=== PATIENT | female | born 1940 | race Caucasian/White ===

== ENCOUNTER 2020-08-28 14:53 | Observation (INO) | payer MEDICARE ==
[~2020-08-28] VITALS: Ht 162.6 cm; Wt 64.5 kg
[2020-08-28] MEDS ORDERED: FLUO10 PO (15:04)
[2020-08-28] MEDS ORDERED: SIMV10 PO (15:04)
[2020-08-28] MEDS ORDERED: METO50ER PO (15:04)
[2020-08-28 15:07] LABS: BASOPHILS ABSOLUTE AUTO 0.03 K/mm3 (0.00-0.23); BASOPHILS PERCENT AUTO 0 % (0-2); EOSINOPHILS PERCENT AUTO 0 % (0-6); Hematocrit 42.9 % (33.0-51.0); Hemoglobin 14.1 g/dL (11.5-16.0); IMMATURE GRAN ABSOLUTE AUTO 0.09 K/mm3 (0.00-0.10); IMMATURE GRAN PERCENT AUTO 0 % (0-1); LYMPHOCYTES ABSOLUTE AUTO 0.82 K/mm3 (0.84-5.20); LYMPHOCYTES PERCENT AUTO 4 % (21-46); MONOCYTES ABSOLUTE AUTO 0.63 K/mm3 (0.16-1.47); MONOCYTES PERCENT AUTO 3 % (4-13); Mean Corpuscular HGB 32.5 pg (26.0-34.0); Mean Corpuscular HGB Conc 32.9 g/dL (31.5-36.5); Mean Corpuscular Volume 99 fL (80-100); Mean Platelet Volume 10.8 fL (9.1-12.4); NEUTROPHILS ABSOLUTE AUTO 18.98 K/mm3 (1.96-9.15); NEUTROPHILS PERCENT AUTO 92 % (41-73); Platelet Count 298 K/mm3 (150-400); RDW Coefficient Variation 14.6 % (11.7-14.2); RDW Standard Deviation 52.9 fL (35.1-46.3); Red Blood Cell Count 4.34 M/mm3 (3.80-5.20); White Blood Cell Count 20.55 K/mm3 (4.00-11.30)
[2020-08-28 15:39] LABS: Alanine Aminotransfer (ALT/SGP 77 U/L (12-78); Albumin, Blood 3.7 g/dL (3.4-5.0); Albumin/Globulin Ratio 0.9 (0.8-1.8); Alk Phos 74 U/L (50-136); Anion Gap 8 mmol/L (6-16); Aspartate Aminotrans (AST/SGOT 67 U/L (12-37); Bilirubin, Total 1.2 mg/dL (0.1-1.0); Blood Urea Nitrogen 25 mg/dL (8-24); Bun/Creatinine Ratio 29.4 (12.0-20.0); CO2, Blood 24 mmol/L (21-32); Calcium, Blood 9.1 mg/dL (8.5-10.1); Chloride, Blood 101 mmol/L (98-108); Creatinine, Blood 0.85 mg/dL (0.40-1.00); Globulin, Blood 4.2 g/dL (2.2-4.0); Glomerular Filtration Rate >60 (60-); Glucose, Blood 175 mg/dL (70-99); Potassium, Blood 5.1 mmol/L (3.5-5.5); Sodium, Blood 133 mmol/L (136-145); Total Protein, Blood 7.9 g/dL (6.4-8.2)
[2020-08-28 15:40] LABS: Troponin I 0.263 ng/mL (0.000-0.040)
[2020-08-28 15:41] LABS: International Normalized Ratio 0.99; Prothrombin Time Results 10.6 Sec (9.7-11.5)
[2020-08-28 15:50] LABS: Source, Urine Catheter
[2020-08-28 15:53] LABS: Appearance, Urine Hazy (Clear); Bilirubin, Urine Neg (Neg); Blood, Urine 2+ (Neg); Color, Urine Yellow (P-Yellow); Glucose Qualitative, Urine Neg (Neg); Ketones, Urine 3+ (Neg); Leukocyte Esterase, Urine 3+ (Neg); Nitrite, Urine Pos (Neg); Protein, Urine 2+ (Neg); Specific Gravity, Urine 1.015 (1.003-1.022); Urobilinogen, Urine 1+ (Normal)
[2020-08-28 15:58] LABS: White Blood Cells, Urine TNTC /hpf (0-5)
[2020-08-28 15:59] LABS: Bacteria Many /hpf; Squamous Epithelial Cells Few /hpf (Few)
[2020-08-28] MEDS ORDERED: XARELTO20 MG (16:31)
[2020-08-28 17:11] LABS: Influenza A, PCR NEGATIVE (NEGATIVE); Influenza B, PCR NEGATIVE (NEGATIVE); Resp Syncytial Virus, PCR NEGATIVE (NEGATIVE); SARS-Cov-2 (COVID-19) PCR, MMC NEGATIVE (NEGATIVE)
--- NOTE | 2020-08-29 04:38 | NUR ---
SHIFT SUMMARY NEW ADMIT FROM ED THIS SHIFT (2039), PT HAS BEEN NON VERBAL BUT DOES TRACK WITH EYES AND WILL SQUEEZE W/R HAND TO RESPOND TO QUESTIONS. MEDICATED 1X FOR PAIN, NO ACUTE CHANGES, SLEPT T/O THE NIGHT & SLEEPING A THIS TIME, CALL LIGHT IN REACH, WILL CONT TO MONITOR UNTIL REPORT GIVEN TO DAY RN.
--- NOTE | 2020-08-29 09:47 | NUR ---
sleeping, minimal response to voice, reacts to touch but does not open eyes or speak, female aid turned pt on side while asprin was applied, call light on chest, frequent checks, rm air, abx infusing with no s/sx of infection/infiltration
--- NOTE | 2020-08-29 18:09 | NUR ---
remained at baseline whole shift, medicated as prescribed, frequent physical assessments, no acute changes noted, no persons cleared to receive information so unable to inform callers who were not listed on face sheet, encouraged them to contact presons who could add them to contact list, assessed pt in am
--- NOTE | 2020-08-30 03:55 | NUR ---
SHIFT SUMMARY PATIENT ON COMFORT CARE. NOT ALERT AT THIS TIME; WITH EYES OPEN BUT NOT ABLE TO TRACK. NON-VERBAL AND BEDREST. ON ROOM AIR. TORRE PATENT AND DRAINING TO GRAVITY. PIV REMAINS INTACT. NO S/SX OF PAIN, SOB, AND N/V. CALL LIGHT IN REACH. BED IN LOWEST POSITION AND ALARM ACTIVATED. WILL CONTINUE TO MONITOR UNTIL DAY SHIFT NURSE ASSUMES CARE.
--- NOTE | 2020-08-30 10:01 | NUR ---
dr pleased with improvement, able to signal for y/n questions, eyes tracking, both open at times, medicated and cared for as prescribed, call light in reach, dr recommends ot assessment to see if another call light might be more effective, abx infusing, rm air, will continue to monitor and treat
--- NOTE | 2020-08-30 13:40 | NUR ---
ADMIT: 08/28/20 DISCHARGE: DX: Acute CVA CC: kwilcox EMMANUELLE CALL: RESIDENCE: Home CAREGIVER: Priscila Li, Friend, Driss Li, Friend, DX: exostosis, DM, Afib, HTN, GERD, DME: none CCM: none HOME HEALTH: none SUMMARY: ADMIT: 08/28/20 08/30/20- per chart review with Dr. Baird, pt appears to be more responsive today. She was able to communicate a little through squeezing the 's hand. Pt acknowledged that she would not want to live where she could not communicate. is needing the patient's advanced directive. She will try to reach Priscila to get the document. At this time, pt is on comfort care, NPO. Once has document she will proceed forward with the patient's wishes. -kjw 1: Acute CVA (cerebrovascular accident) A/P: Per POA and andvanced directive she read me, patient would not want to be kept alive if she is unable to communicate. With size and location of occlusion, it is unlikely patient will make significant enough improvement to fulfill her wishes for quality of life. They agreed to conservative treatment with Aspirin and Antibiotics for possible UTI and pneumonia. - Palliative care consult - Hospice referal - Comfort measures with limited additional treatment - ASA FL daily - Nothing by mouth 2: NSTEMI (non-ST elevated myocardial infarction) A/P: - Treatment as above 3: UTI (urinary tract infection) A/P: - Ceftriaxone 4: Atrial fibrillation, chronic A/P: - Hold home Xarelto due to risk of conversion to hemorrhagic stroke - Patient unable to take by mouth medications right now 5: PVD (peripheral vascular disease) A/P: Pulse barely audible on doppler LLE, more evidence of severe vasculopathic disease 6: Mechanical venous thromboembolism (VTE) prophylaxis in place
--- NOTE | 2020-08-30 18:36 | NUR ---
at baseline, responds to voice and touch, more responsive today than yesterday, call light in reach and has used just not appropriately, rm air, saline locked, bed in low position, no acute changes noted during shift, frequent checks and repositioning, will share bsr with noc nurse and pt
--- NOTE | 2020-08-31 03:59 | NUR ---
SHIFT SUMMARY PATIENT HAD NO ACUTE CHANGES OBSERVED. RESPONDS TO VOICE AND TOUCH IN HER FIELD OF VIEW. EYES OPEN AND NON-VERBAL. TORRE PATENT AND DRAINING TO GRAVITY. NEW STAT LOCK PLACE. NO S/SX OF PAIN, SOB, AND N/V. NO FAMILY PRESENT OR FAMILY CALLS. BED IN LOWEST POSITION AND ALARM ACTIVATED. WILL CONTINUE TO MONITOR UNTIL DAY SHIFT NURSE ASSUMES CARE.
--- NOTE | 2020-08-31 11:06 | NUR ---
0800 NOTE SHE IS PALE. RESPIRATIONS REGULAR AND UNLABORED. L EYE ONLY OPEN SLIGHTLY. THE R EYE IS MORE FULLY OPEN. SHE DID NOT RESPOND VERBALLY WHEN I TALKED WITH HER. SHE APPEARS COMFORTABLE. WHEN ATTENDS CHECKED, THEY ARE A LITTLE WET. IT APPEARED THAT HER TORRE WAS PROBABLY LEAKING. I ADDED MORE STERILE SALINE TO THE BALLOON. JOSE JUAN-CARE DONE WITH ATTEND CHANGE.
--- NOTE | 2020-08-31 11:10 | NUR ---
WILL GIVE ROXANOL AND ATROPINE DROPS. SHE SHOOK HER HEAD YES TO MY ASKING ABOUT PAIN. SHE HAS VERY SLIGHT GURGLING SOUNDS. TO START ATROPINE. I CHANGED FROM 1 MUSIC STATION TO ANOTHER ON HER TV.
--- NOTE | 2020-08-31 13:35 | NUR ---
1200 NOTE RESTING COMFORTABLY BUT TURNED AGAIN. SOFT MUSIC PLAYING. NO VISITORS.
--- NOTE | 2020-08-31 14:34 | NUR ---
1400 NOTE RESTING COMFORTABLY ON HER R SIDE. NO RESP DISTRESS.
--- NOTE | 2020-08-31 15:08 | NUR ---
PAL CARE COMFORT CARE VISIT - Case conferenced with RN after and during visit and Dr and [employer] healthcare applications analyst after my visit. Pt was resting quietly with eyes open. She had recently been medicated for pain. I did not note nonverbal painful behaviors even with two person repositioning during my visit with her RN. Pt has jauregui cath with lt yellow urine in jauregui drainage bag. Orders reviewed and discussed with RN and DR. Some prn medications changed per VO to be more in line with what would be done outside of hospital on hospice. Dr awaiting documentation from family and son to [facility] today per reports. Pt has indicated that she desires comfort care at this time per Dr. If able I will try to confirm that. Pt is unable to verbally communicate but was able to squeeze hand for affirmative response previously. Pt is unable to swallow after this CVA and is total assist of two persons for bed mobility. Pal Care to continue visits for support and s/s management.
--- NOTE | 2020-08-31 18:23 | NUR ---
1600 NOTE TURNED. PERICARE DONE. ATTEND A LITTLE WET AGAIN FROM LEAKING TORRE CATHETER. CATHETER DC'D. 475 MLS YORDAN URINE EMPTIED FROM COLLECTION BAG. SHE DID NOT HAVE ANY DISTRESS WITH ALL THIS. SHE APPEARS COMFORTABLE. CAME AND SPOKE WITH HER SON WHO ARRIVED FROM [facility]. HE BROUGHT IN A COPY OF HER ADVANCE DIRECTIVE. IT IS ON THE CHART.
--- NOTE | 2020-08-31 18:26 | NUR ---
SHE IS COMFORTABLE. SON AND HER INGOT HEADER VISITED HER TODAY. ADVANCE DIRECTIVE ON CHART. DOCTOR CONFERENCED WITH HER SON. IV ANTIBIOTIC DC'D. CC ORDERS UPDATED BY THE PALLLIATIVE CARE NURSE TODAY. TORRE DC'D BECAUSE IT LEAKED.
--- NOTE | 2020-08-31 22:42 | NUR ---
08/31/20 DR MONTERROSO AND MYSELF MET WITH SON, CAMILLE IN PATIENTS ROOM. HE BROUGHT COPIES OF POA. FRIENDS CALOS AND IESHA ARE POA. ALL ARE IN AGREEMENT THAT SHE WOULD NOT WANT TO LIVE IN THIS CURRENT STATE. COMFORT CARE IN PLACE, REMOVED FLUIDS TODAY. CAMILLE LIVES OUT OF STATE AND WILL BE RETURNING BACK HOME IN A COUPLE OF DAYS, CAMILLE DOES NOT BELIEVE THAT ARETHA HAS ANY ASSETS OR MONEY TO PAY FOR ADDITIONAL CARE. HE ALSO STATES THAT HER FRIENDS CALOS AND IESHA ARE NOT ABLE TO CARE FOR ARETHA IN HER CURRENT STATE AT HOME ON HOSPICE SERVICES. PER DR MONTERROSO, ARETHA WILL REMAIN IN THE HOSPITAL UNLESS ALTERNATIVE ARANGEMENTS CAN BE MADE. I WILL REACH OUT TO CALOS AND IESHA ON MONDAY TO DISCUSS ANY ALTERNATIVE OPTIONS FOR HER CARE. CP
--- NOTE | 2020-09-01 04:31 | NUR ---
SHIFT SUMMARY ADMITTED FOR ACUTE CVA. DNR CODE/COMFORT CARE. WE HAVE BEEN Q 2 TURNING THIS PT AND FLOATING HER HEELS. SHE APPEARS COMFORTABLE AND IN NO DISTRESS. I DID GIVE ATROPINE 1 TIME FOR EXCESSIVE SECRETIONS. SHE IS INCONTINENT. UNMEASURED VOIDS. ATTENDS ARE IN PLACE. ORAL CARE PERFORMED. WE USED MOUTH MOISTENING SWABS AND CHAPSTICK.
--- NOTE | 2020-09-01 11:30 | NUR ---
[facility] CARE [facility] CARE VISIT - PT lying on right side, eyes open. She is unable to talk. When asked if she was hurting she appeared to nod yes. I asked her to squeeze my hand if she was hurting and she did. When I told her I would go get nurse to administer medication for pain and she squeezed again. Once pt was medicated with Roxanol, Nurse and I repositioned to left side. Pt wanted to hold my hand. I gave her a hand massage and foot massage, which she responded well to. No visitors at bedside. Will request naturopathic doctor visits also for company of pt who is alone in her room most of the time, outside of staff care and intervention. [facility] Care to cont daily visits for s/s management and support.
--- NOTE | 2020-09-01 17:31 | NUR ---
Spiritual care note: Ollie was awake and held my hand throughout visit. She denied pain/anxiety and appeared to understand what I was saying. I massaged her hands and arms and she appeared to enjoy this. I provided affirmation of safety and love and offered prayer. She seems to understand she is nearing end of life and shakes her head 'no' when asked if she was afraid. She nodded 'yes' that she felt ready. She is very sweet. I will continue to spend time with Ollie as schedule permits.
--- NOTE | 2020-09-01 17:50 | NUR ---
SHIFT SUMMARY PATIENT MEDICATED X2 FOR PAIN THIS SHIFT. REPOSITION Q2. LEFT SIDE WEAK. PATIENT ABLE TO COMMUNICATE WITH YES/NO HEAD SHAKES AND POINT TO YES/NO WHEN WRITTEN DOWN. PATIENT'S SON VISTED THIS MORNING. SPIRITUAL VIAITED IN AFTERNOON.
--- NOTE | 2020-09-01 19:34 | NUR ---
AWAKENS AT ROUNDING. DENIES PAIN. WARM BLANKET APPLIED. CALL LIGHT IN REACH
--- NOTE | 2020-09-01 21:14 | NUR ---
RESTING QUETLY. CALL LIGHT IN REACH
--- NOTE | 2020-09-01 21:49 | NUR ---
REPOSITIONED, PAIN MED GIVEN. WATCHING TV. CALL LIGHT IN REACH
--- NOTE | 2020-09-02 00:44 | NUR ---
AWAKE, WATCHING TV, REACHES OUT TO STAFF TO HOLD THEIR HAND. RESPS EVEN. NONOTED ACUTE DISTRESS. CALL LIGHT IN REACH
--- NOTE | 2020-09-02 03:01 | NUR ---
SHIFT SUMMARY REMAINS ON COMFORT CARE. REPOSITIONED AND MEDICATED FOR COMFORT - SEE MAR FOR DETAILS. CURRENTLY RESTING QUIETLY. CALL LIGHT IN REACH
--- NOTE | 2020-09-02 06:23 | NUR ---
RESTING QUIETLY. CALL LIGHT IN REACH
--- NOTE | 2020-09-02 06:24 | NUR ---
RESTING QUIETLY, CALL LIGHT IN REACH
--- NOTE | 2020-09-02 06:24 | NUR ---
RESTING QUIETLY. CALL LIGHT IN REACH
--- NOTE | 2020-09-02 10:27 | NUR ---
Pt resting in bed upon arrival. Pt able to nod her head and squeeze hand to respond to questions. Pt denies pain at this time. Pt does report mild discomfort and is requesting to be repositioned. Assisted Bedside RN in repositioning. Spoke with Bedside RNs Syeda and Roma. Discussed case and concerns. Pt does appear to be more alert and plan is for ST to evaluate. Palliative Care will remain available.
--- NOTE | 2020-09-02 12:20 | NUR ---
PT WROTE "YES" WHEN ASKING ABOUT PAIN. INDICATED PAIN LOCATED IN NECK BY POINTING AT IT. UNABLE TO GIVE PAIN SCORE. REPOSITIONED ON TO LEFT SIDE
--- NOTE | 2020-09-02 13:45 | NUR ---
09/02/20 s/w Driss Li by telephone,[phone] POA and lesly, discussed jose current state, aware, not eating or drinking, not going to the bathroom, bed bound. Enjoys comfort. Suggested that they consider taking her home for hospice. He said he will talk to his about it and let me know tomorrow. cp
--- NOTE | 2020-09-02 16:29 | NUR ---
DID ORAL CARE FOR PT. PT DENIES PAIN/N. FOUND NEW TV CHANNEL FOR PT TO WATCH.
--- NOTE | 2020-09-02 17:03 | NUR ---
Spiritual care note: Ollie was alone in room, non-verbal, and appears calm/comfortable. She held my hand while I spoke to her and appeared to enjoy companionship. I will remain available.
--- NOTE | 2020-09-02 18:10 | NUR ---
SHIFT SUMMARY PT IS A&O BUT ITS IS DIFFICULT FOR HER TO MAKE HER NEEDS KNOWN VERABALLY. SHE IS ABLE TO RESPOND WITH YES OR NO USING A COMMUNICATION BOARD. PT WORKED WITH SPEECH THERAPY TODAY AND IS STILL NPO BUT SHOULD BE SUCTIONED Q4 WITH ORAL CARE. IN AFTERNOON PT HAD PAIN IN NECK, PT REPOSITION AND GIVEN PAIN MEDS. PT SON CAME TO VISIT IN THE [facility] AND STATED HE WOULD BE DRIVING HOME TO [facility] BUT WILL BE BACK IN A FEW DAYS.
--- NOTE | 2020-09-02 19:00 | NUR ---
COMFORT CARE RECIEVED BEDSIDE REPORT. PT APPEARS TO BE RESTING WITHOUT ANY NEEDS AT THIS TIME. BED IN LOWEST POSITION; ALARM ON. CALL LIGHT WITHIN REACH.
--- NOTE | 2020-09-02 21:00 | NUR ---
COMFORT CARE APPEARS TO BE RESTING WITHOUT ANY NEEDS AT THIS TIME. BED REMAINS IN LOWEST POSITION; ALARM ON. CALL LIGHT WITHIN REACH.
--- NOTE | 2020-09-03 01:00 | NUR ---
COMFORT CARE APPEARS TO BE RESTING WITHOUT ANY NEEDS AT THIS TIME. ORAL CARE COMPLETED. REPOSITIONED. BED IN LOWEST POSITION; ALARM ON. CALL LIGHT WITHIN REACH.
--- NOTE | 2020-09-03 03:00 | NUR ---
COMFORT CARE APPEARS TO BE RESTING WITHOUT ANY NEEDS AT THIS TIME. CONTINUE WITH CURRENT PLAN OF CARE. BED IN LOWEST POSITION; ALARM ON. CALL LIGHT WITHIN REACH.
--- NOTE | 2020-09-03 04:22 | NUR ---
SHIFT SUMMARY ALERT, ABLE TO MAKE NEEDS KNOWN UTILIZING PICTURE BOARD. REPOSITIONED T/O SHIFT. ORAL CARE COMPLETED. NO C/O PAIN/DISCOMFORT. APPEARED TO REST MUCH OF THE NIGHT. NO ACUTE CHANGES NOTED. BED REMAINS IN LOWEST POSITION; ALARM ON. CALL LIGHT WITHIN REACH. CONTINUE WITH CURRENT PLAN OF CARE. REPORT TO ONCOMING RN.
--- NOTE | 2020-09-03 06:41 | NUR ---
COMFORT CARE APPEARS TO BE RESTING WITHOUT ANY NEEDS AT THIS TIME. ORAL CARE. REPOSITIONED WITH PILLOWS UNDER EACH HIP. BED REMAINS IN LOWEST POSITION; ALARM ON. CALL LIGHT IN REACH
--- NOTE | 2020-09-03 11:32 | NUR ---
Pt resting in bed. Pt able to respond to questions by noding her head. Pt denies pain and discomfort at this time. Offered gentle voice and therapeutic touch. Spoke with Bedside RN Christopher and discussed case. Palliative Care will remain available.
--- NOTE | 2020-09-03 16:14 | NUR ---
PT ASLEEP AT THIS TIME
--- NOTE | 2020-09-03 17:20 | NUR ---
PT AWAKE. DENIES PAIN AND NAUSEA AT THIS TIME.
--- NOTE | 2020-09-03 17:21 | NUR ---
Spiritual care note: Ollie appears less lucid today and quite weak. She drifted in and out of sleep while I visited. I rubbed her hands and feet and spoke words of assurance to her. [facility] Care Worker services will remain available.
--- NOTE | 2020-09-03 18:03 | NUR ---
09/03/20 Requested help from Chelle Dodson field case manager to identify if hospice services would be available through [place], [facility] program. I was told on Monday by Jennifer in care management that [facility]. cp
--- NOTE | 2020-09-03 18:27 | NUR ---
SHIFT SUMMARY PT HAS DENIED PAIN DURING SHIFT. PT SELPT FOR SECOND PART OF SHIFT. ABLE TO AROUSE PT WHEN NEEDING TO TURN OR PROVIED PATIENT CARE. PT ABLE TO NOD YES OR NO TO ANSWER QUESTIONS. PT CURENTLY IN ROOM ASLEEP. CALL LIGHT IS ON PT UNAFFECTED SIDE.
--- NOTE | 2020-09-03 23:27 | NUR ---
09/03/20 2200 PT SLEEPING WITHOUT DISTRESS. NO INTERVENTION NEEDED AT THIS TIME.
--- NOTE | 2020-09-04 06:38 | NUR ---
09/04/20 0600 REPOSITIONED AND FELL BACK ASLEEP. APPEARS COMFORTABLE.
--- NOTE | 2020-09-04 07:15 | NUR ---
PT AWAKE, OFFERED ORAL CARE PT DECLINED. PT DENIES P/N/V AT THIS TIME.
--- NOTE | 2020-09-04 09:56 | NUR ---
Comfort Care Visit Pt resting in bed and denies pain at this time. Pt appears a little more withdrawn today. Offered gentle voice and therapeutic touch. Spoke with bedside RN Syeda and discussed case. Palliative Care will remain available.
--- NOTE | 2020-09-04 10:33 | NUR ---
SPOKE WITH SON ON THE PHONE REQUESTING UPDATE. SON WANTED TO KNOW HOW LONG SHE MAY HAVE. INFORMED HIM IT'S HARD TO KNOWN AND THAT IS A CASE BY CASE. SON SAID HE PLANS TO [place] BACK [place] TOM[place] NIGHT AND THANKED US FOR CARING FOR HIS MOM.
--- NOTE | 2020-09-04 11:06 | NUR ---
CAMILLE FROM PASTORAL CARE IN ROOM PLAYING [employer].
--- NOTE | 2020-09-04 12:07 | NUR ---
Spiritual care visit conducted. Patient is lying in bed and alert. I bring my guitar in and ask patient if it is ok for me to play for her. She nods her head yes. I play several soft therapeutic kinds of songs and in between I remind patient of her value and worth and the hope for her future. At one point patient began to weep while I was playing guitar. I then sat and held patient's hand and patient tried so hard to tell me what she was feeling but to no avail. We tried her board with symbols and letters but patient gave up. I then played a couple more songs and then asked patient if I could say a prayer for her. She nodded affirmingly. I provided prayer which caused more tears to fall. We tried to get to the pain and when I said that she has clear thoughts but can't express them she nodded affirming again. I normalize patient's frustration and and provide a calming presence. I will continue to remain available to patient and family.
--- NOTE | 2020-09-04 17:39 | NUR ---
09/04/20 No update on availability of hospice services available at [place], [facility]. Will follow up with Ivory MENA Monday. Roger remains alert and comfortable at this time. No availability for Laray to return to home or family for hospice services. deisy.
--- NOTE | 2020-09-04 17:54 | NUR ---
SHIFT SUMMARY PT IS CURENTLY SLEEPING. PT RECEIVED BED BATH FROM COMMUNITY ORGANIZATION DIRECTOR'S. ORAL CARE WAS DONE FOR PT THROUGTHOUT SHIFT. PT SEEMED TO BE A LITTLE WITHDRAWN BUT PERKED UP WHEN I TOLD HER, CAMILLE (SON) CALLED AND SAID HE PLANS ON BEING IN [place]OWN TOMORROW NIGHT. CALL LIGHT W/IN REACH AND BED IN LOWEST POSITION.
--- NOTE | 2020-09-05 04:56 | NUR ---
SHIFT SUMMARY ASSUMED CARE OF PT AT 1900. PT IS NON VERBAL. PT WAS ABLE TO ANSWER SOME QUESTIONS WITH A HEAD NOD, SUCH IF SHE WAS COLD OR IN PAIN. RESPIRATIONS EVEN AND UNLABORED. PT SLEPT ON/OFF T/O THE NIGHT. PT ONLY ABLE TO LOOK AT PERSON TALKING TO HER ON HER R SIDE. ORAL CARE Q4. NO ACUTE EVENTS DURING THE NIGHT. CALL LIGHT IN REACH, BED IN LOWEST POSITION.
--- NOTE | 2020-09-05 07:43 | NUR ---
BEDSIDE REPORT PT IS AWAKE, CALM. NODS YES/NO TO SIMPLE QUESTIONS. NO S/S PAIN. SHE IS ABLE TO RAISE R ARM ON COMMAND HOWEVER FLACCID ON L. [place]. ASSISTED w ORAL CARE & REPOSITINING. WILL MX & PROVIDE COMFORT CARE.
--- NOTE | 2020-09-05 11:39 | NUR ---
PT CONTINUES AWAKE, CALM, NO S/S PAIN. WORT EXTRACTOR IN FOR REPOSITIONING, PROVIDE THOROUGH ORAL CARE.
--- NOTE | 2020-09-05 14:17 | NUR ---
oral care done
--- NOTE | 2020-09-05 14:23 | NUR ---
COMFORT CARE CONTINUES. PT ASSISTED w REPOSTIONING FOR COMFORT, SUPPORTED w PILLOWS. APPEARS WEAK/FATIGUED, NO S/S PAIN. SHE IS APHASIC NONVERBAL. ORAL CARE PROVIDED, MOUTH MOISTURIZER APPLIED.
--- NOTE | 2020-09-05 16:06 | NUR ---
PT ASSISTED w REPOSITIONING. INCREASING APPEARANCE OF WEAKNESS/FATIGUE. SHE OPENS EYES TO VERBAL STIM, UNABLE TO SPEAK HOWEVER WHEN ASKED TO INDICATE PAIN /DISCOMFORT BY RAISING R HAND SHE DOES. ROXANOL USE FOR COMFORT CARE EXPLAINED TO HER, SHE CONTINUES TO RAISE R HAND. PRN ROXANOL 10MG GIVEN.
--- NOTE | 2020-09-05 18:09 | NUR ---
pt resting supine supported w pillows. she is able to make known comfort @ this time. resting quietly.
--- NOTE | 2020-09-06 04:58 | NUR ---
SHIFT SUMMARY ASSUMED CARE OF PT AT 1900. PT IS ALERT AND CAN ANSWER SOME QUESTIONS WITH A NOD. ORAL CARE GIVEN ALONG WITH PAIN MEDICATION AND PT SLEPT T/O THE NIGHT. UPON REASSESSMENT, BUT SOUNDS GURGLY BUT CLOSED HER MOUTH, SHOOK HER HEAD AND REFUSED ORAL CARE. PT RESPIRATIONS ARE EVEN AND UNLABORED. PT HAS BEEN IN CONTINENT OF URINE. CALL LIGHT IN REACH, BED IN LOWEST POSTION.
--- NOTE | 2020-09-06 07:24 | NUR ---
DR ESPAÑA IN TO SEE PT APPROX 0700. D/C NPO ORDER, STATE IF PT AWAKE/ALERT MAY HAVE SIPS/CHIPS, ADV DIET YOLETTE. PT APPEARS PALE, WEAK/FATIGUED, LESS INTERACTIVE THAN PREVIOUS DAY. SHE WIGGLES R HAND TO ACKNOWLEDGE NAME HOWEVER NO OTHER RESPONSES TO QUESTIONS, BECOMING INCREASINGLY LETHARGIC.NO S/S PAIN. ORAL CARE, REPOSITIONING FOR COMFORT, ATTENDS CHANGE PROVIDED. WILL MX & PROVIDE COMFORT CARE.
--- NOTE | 2020-09-06 10:53 | NUR ---
PT SON IN BRIEFLY, LEFT W/O QUESTIONS. PT CONTINUES TO REST QUIETLY, W/O S/S PAIN.
--- NOTE | 2020-09-06 11:38 | NUR ---
PT MOANING, SHE IS SOMEWHAT AWAKE, OPENS EYES W VERBAL STIM. WHEN QUESTIONED R/T PAIN/DISCOMFORT SHE WIGGLES R HAND, PRN ROXANOL 10 MG GIVEN. EXCESS ORAL SECRETIONS NOTED, PT ENCOURAGED TO COUGH, SWALLOW, PRN ATROPINE GTT PROVIDED. ORAL CARE & REPOSITIONING PROVIDED. WILL CONT TO MX.
--- NOTE | 2020-09-06 12:47 | NUR ---
PT SON CAME IN FOR SHORT VISIT, AGAIN DID NOT STAY FOR UPDATE OR ASK QUESTIONS. PT RESTING QUIETLY. SHE APPEARS TO BE WEAKENING/DECLINING. ROXANOL & ATROPINE EFFECTIVE.
--- NOTE | 2020-09-06 13:42 | NUR ---
PT CONTINUES TO WEAKEN, NO INTERACTION, MINIMALLY RESPONDS TO NAME, NO LONGER LIFTING OR WIGGLING R HAND TO RESPOND. EYES OPEN HOWEVER VACANT. LIGHT MOANING CONTINUOS. PRN ROXANOL 10MG GIVEN FOR S/S DISCOMFORT. SHE IS NO LONGER CLEARING ORAL SECRETIONS, PROVIDING ORAL CARE & SX. ATROPINE GTTS GIVEN. POSITIONED FOR COMFORT.
--- NOTE | 2020-09-06 15:08 | NUR ---
LIGHT MOANING IS CONSTANT NOW, HER SON @ BEDSIDE. REVIEWED COMFORT CARE TX'S & PT'S SYMPTOMS W HIM, HE STATE HAS NOTICED DECLINE. SHE CONTINUES TO OPEN EYES TO VERBAL STIM. BREATHING IS BECOMING MORE LABORED APPROX 36 RESP/MIN, HR CONTINUES IRREG. EXCESS SECRETIONS SX'D. PRN ROXANOL 20MG & ATROPINE GTTS GIVEN.
--- NOTE | 2020-09-06 18:16 | NUR ---
ENTRY TO ROOM PT TAKING LAST AGONAL BREATHS. APPEARS PEACEFUL. TIME OF 1812. SOFT SUGAR CUTTER NOTIFIED, STATE WILL NOTIFY . PT'S SON CAMILLE NOTIFIED, STATE AIDE'S [facility] WILL BE MORTUARY.
--- NOTE | 2020-09-06 23:02 | NUR ---
PATIENT PICKED UP BY [facility] FROM [facility] AT 2245. ALL PERSONAL ITEMS TAKEN HOME EARLIER BY HER SON .
== END 2020-09-06 18:13 ==
LOC: ER 14:53 → MEDS 14:54
PROVIDERS: Emergency Medicine; ADMIT Internal Medicine
DX: I63.311 Cerebral infarction due to thrombosis of right middle cerebral artery (principal); G81.94 Hemiplegia, unspecified affecting left nondominant side; R29.810 Facial weakness; H53.8 Other visual disturbances; R41.4 Neurologic neglect syndrome; I21.4 Non-ST elevation (NSTEMI) myocardial infarction; J81.1 Chronic pulmonary edema; N39.0 Urinary tract infection, site not specified; I10 Essential (primary) hypertension; Z79.01 Long term (current) use of anticoagulants; E11.40 Type 2 diabetes mellitus with diabetic neuropathy, unspecified; F32.9 Major depressive disorder, single episode, unspecified; I48.20 Chronic atrial fibrillation, unspecified; E11.51 Type 2 diabetes mellitus with diabetic peripheral angiopathy without gangrene; B96.20 Unspecified Escherichia coli [E. coli] as the cause of diseases classified elsewhere; R29.717 NIHSS score 17; Z66 Do not resuscitate; Z51.5 Encounter for palliative care; Z86.73 Personal history of transient ischemic attack (TIA), and cerebral infarction without residual deficits; Z87.891 Personal history of nicotine dependence; Z20.822 Contact with and (suspected) exposure to COVID-19
CPT/HCPCS: 0241U; 36415; 51702; 70450; 70496; 70498; 71045; 80053; 81001; 83605; 83880; 84484; 85025; 85610; 85730; 87040; 87077; 87086; 87186; 92526; 92610; 93005; 93010; 96365-59; 96366; 96367; 96367-59; 96375; 96375-59; 96376; 99285-25; A9270; G0378; J0290; J0456; J0696; J1940; J2270; J7050; Q3014; Q9967